=== PATIENT | male | born 1965 | race Caucasian/White ===

== ENCOUNTER → 2019-09-08 10:17 | Outpatient (CLI) | payer OTHER, SELFPAY ==
[2019-09-08 11:46] LABS: BUN Creatinine Ratio 15.2 (6-22); Blood Urea Nitrogen 15 mg/dL (9-20); Calcium 8.9 mg/dL (8.4-10.2); Carbon Dioxide 27 mmol/L (22-32); Chloride 106 mmol/L (98-107); Estimated Glomerular Filt Rate > 60.0 mL/min (>60); Glucose 84 mg/dL (70-100); HEMOLYSIS < 15 (0-50); Sodium 139 mmol/L (137-145)
== END ==
PROVIDERS: Referring Provider Internal Medicine Cardiovascular Disease; Visit Provider Internal Medicine Cardiovascular Disease
DX: I42.9 Cardiomyopathy, unspecified (principal)
CPT/HCPCS: 36415; 80048

== ENCOUNTER → 2023-12-07 09:14 | Outpatient (CLI) | payer OTHER, MEDICAID, SELFPAY ==
--- NOTE | 2023-12-07 09:18 | DI.ECHO.S_ITS ---
[facility] : : [id number] : [facility] : : [place], : : [place] [address] : : Phone: [phone] Echocardiogram Report + + :Name: RALF CORADO Study Date: 12/07/2023 Height: 74 in : :[id number] ReadingLocation: Weight: 290 lb : : Gender: Male BSA: 2.5 m2 : :: 1965 Age: 58 yrs BP: 148/107 mmHg: :Reason For Study: ASCENDING AORTA ENLARGEMENT : :Ordering Physician: NICK, : :BENITO Performed By: Marc Silverio : :Referring: BEINTO OLIVAREZ : + + Interpretation Summary 1) Normal sized left ventricle with mildly reduced systolic function (EF about 45%). 2) Mildly dilated right ventricle with normal function. 3) Left atrium is severely dilated. 4) No significant valvular abnormalities. 5) Mildly enlarged aortic root (diameter 3.9cm) and ascending aorta (diameter 3.8cm). 6) Compared to the Echo done 06/02/2019, no significant change. Procedure: A two-dimensional transthoracic echocardiogram with color flow and Doppler was performed. The study quality was technically adequate. Comparison is made with the echocardiogram of 06/02/19. The patient was in atrial fibrillation with heart rates between 60-84 bpm during the exam. Left Ventricle: The left ventricle is normal in size. Left ventricular wall thickness is mildly increased. There is no ventricular septal defect visualized. Left ventricular ejection fraction is estimated to be 45 +/- 5%. There is mild global hypokinesis of the left ventricle. Right Ventricle: The right ventricle is mildly dilated. The right ventricular systolic function is normal. Atria: The left atrium is severely dilated. The right atrium is moderately dilated. There is no Doppler evidence for an interatrial shunt. Mitral Valve: The mitral valve is normal in structure and function. There is trace mitral regurgitation. Aortic Valve: The aortic valve is trileaflet. The aortic valve opens well. The aortic valve is slightly calcified. No aortic regurgitation is present. Tricuspid Valve: The tricuspid valve is normal in structure and function. There is a trace or physiologic amount of tricuspid regurgitation. Pulmonic Valve: The pulmonic valve is not well seen, but is grossly normal. The pulmonic valve is not well visualized. There is no pulmonic valvular regurgitation. Great Vessels: The aortic root is mildly dilated. The ascending aorta is mildly enlarged. The pulmonary artery is normal size. The IVC is of normal diameter and collapses greater than 50% with a sniff. This suggests a low right atrial pressure of 3 mm Hg. Pericardium/ Pleura There is no pericardial effusion. There is no pleural effusion. MMode/2D Measurements & Calculations LVIDd: 4.8 cm AoV Openin.1 cm LVIDs: 3.9 cm LVOT diam: 2.5 cm IVSd: 1.3 cm Ao root diam: 3.9 cm LVPWd: 1.4 cm asc Aorta Diam: 3.8 cm LV nguyễn. diameter/BSA (cm/m^2): 1.9 Ao Arch Diam (Prox Trans): 2.9 cm LV sys. diameter/BSA (cm/m^2): 1.5 FS: 19.4 % EPSS: 0.68 cm LA A2 area: 35.8 cm2 RA long axis: 5.4 cm LA A4 area: 31.9 cm2 RA area: 23.8 cm2 LA length (vol): 7.5 cm RA vol: 88.8 ml LA vol: 129.8 ml RA : 34.9 ml/m2 LA vol index: 51.0 ml/m2 RVD1 (basal): 4.4 cm IVC diam: 2.0 cm RVD2 (mid): 3.4 cm TAPSE: 3.1 cm Doppler Measurements & Calculations Ao V2 max: 111.6 cm/sec LVOT Max David: 87.4 cm/sec Ao V2 mean: 77.3 cm/sec LV V1 max P.1 mmHg Ao V2 VTI: 23.2 cm LV V1 VTI: 17.7 cm Ao max P.0 mmHg Ao mean P.6 mmHg BERNIE(I,D): 3.8 cm2 MV E max david: 91.3 cm/sec BERNIE(V,D): 3.9 cm2 MV A max david: 30.5 cm/sec BERNIE indexed to BSA (cm^2/m^2): 1.5 MV E/A: 3.0 sev ratio: 0.76 Med Peak E' David: 9.9 cm/sec E/E' med: 9.2 Lat Peak E' David: 10.1 cm/sec E/E' lat: 9.0 E/e' average: 9.1 MV dec time: 0.19 sec PA V2 max: 64.1 cm/sec PA V2 mean: 47.5 cm/sec PA mean P.97 mmHg PA pr(Accel): 14.8 mmHg SV(LVOT): 86.9 ml Reading Physician:07:41 PM
== END ==
PROVIDERS: Referring Provider Internal Medicine Cardiovascular Disease; Visit Provider Internal Medicine Cardiovascular Disease
DX: I77.89 Other specified disorders of arteries and arterioles (principal); I77.810 Thoracic aortic ectasia
CPT/HCPCS: 93306